=== PATIENT | female | born 1975 | race Two or more races ===

== ENCOUNTER 2017-08-14 08:09 | Emergency (ER) | payer OTHER ==
[~2017-08-14] VITALS: Ht 165.1 cm; Wt 68.0 kg
== END 2017-08-14 15:56 | disposition home or self-care (01) ==
LOC: ER 08:09
DX: R10.31 Right lower quadrant pain (principal)

== ENCOUNTER 2017-08-17 08:03 | Emergency (ER) | payer OTHER ==
[~2017-08-17] VITALS: Ht 165.1 cm; Wt 68.0 kg
[2017-08-17] MEDS ORDERED: PREVACID15 MG PO (08:11)
[2017-08-17] MEDS ORDERED: GAVISCON LIQUI355 ML PO (08:11)
[2017-08-17] MEDS ORDERED: TUSSI-PRES LIQ118 ML PO (11:16)
[2017-08-17] MEDS ORDERED: OSEL75CA PO (11:16)
== END 2017-08-17 12:40 | disposition home or self-care (01) ==
LOC: ER 08:03
DX: B34.9 Viral infection, unspecified (principal); J11.1 Influenza due to unidentified influenza virus with other respiratory manifestations